=== PATIENT | male | born 1985 | race Caucasian/White ===

== ENCOUNTER 2017-07-14 01:13 | Emergency (ER) | END 2017-07-14 03:45 | disposition home or self-care (01) ==

== ENCOUNTER 2018-07-31 20:58 | Emergency (ER) | payer MEDICAID ==
[~2018-07-31] VITALS: Ht 165.1 cm; Wt 70.0 kg
[~2018-07-31 20:58] MED LIST: ALBU18HF INHALATION; ALBU8.5H5 IH; IBUP-1542 PO; PRED20TA PO
[2018-07-31 21:22] VITALS: Ht 165.1 cm; Wt 70.0 kg
[2018-08-01] MEDS ORDERED: IPRATROPIUM (NEB) 0.5 MG/2.5 ML AMP NEB STA
[2018-08-01] MEDS ORDERED: DEXAMETHASONE 10 MG/ML 1 ML INJ IM ONE
[2018-08-01] MEDS ORDERED: ALBUTEROL 0.083% (NEB) 2.5 MG/3 ML AMP NEB STA ×2 (01:31)
[2018-08-01] MEDS ORDERED: ALBU2.5V3 NEB (02:15)
--- NOTE | 2018-08-01 02:28 | ERD ---
ER Documentation Chief Complaint Chief Complaint ASTHMA EXACERBATTION, SOB, SALINAS HPI 33 year-old [male] coming in today with Chief Complaint: Shortness of breath History of Present Illness: She coming in today with complaint of shortness of breath that has been worsening over 3 days. Patient reports use of at home albuterol inhaler without relief of shortness of breath. Associated symptoms include cough and headache. Review of systems: All systems were reviewed and are negative except for what is indicated in the history of present illness. Past Medical History: Asthma, only use of pro-air Social History: [Patient denies tobacco, alcohol, elicit drug use] Medications: Pro Air Allergies: [NKDA] Social Concerns: Denies ROS All systems reviewed and are negative except as per history of present illness. Medications Home Meds Active Scripts Albuterol Sulfate* (Albuterol Sulfate* Neb) 0.083%-3 Ml Neb, 2.5 MG NEB Q4 PRN for SHORTNESS OF BREATH, #30 EA Prov:ZBIGNIEW DARLING NP 08/01/18 Prednisone* (Prednisone*) 20 Mg Tab, 40 MG PO DAILY for 4 Days, TAB Prov:VIVIANE HOLLOWAY. 07/14/17 Albuterol Sulfate* (Ventolin HFA*) 18 Gm Hfa.aer.ad, 2 PUFF INHALATION Q4H, #1 INHALER Prov:VIVIANE HOLLOWAY 07/14/17 Ibuprofen* (Motrin*) 600 Mg Tab, 600 MG PO Q8 for PAIN AND/OR INFLAMMATION, #30 TAB Prov:DAVID SOTO MD 02/13/16 Albuterol Sulfate* (Albuterol Sulfate* HFA) 8.5 Gm Hfa.aer.ad, 2 PUFF IH Q4H PRN for WHEEZING AND SOB, #1 EA Prov:ANA LAURA GUERRA NP 01/31/15 Allergies Allergies: Coded Allergies: No Known Drug Allergies (Verified Allergy, Mild, 07/07/10) PMhx/Soc Medical and Surgical Hx: pt denies Surgical Hx Anesthesia Reaction: No Hx Neurological Disorder: No Hx Respiratory Disorders: Yes (asthma) Hx Cardiac Disorders: No Hx Psychiatric Problems: No Hx Miscellaneous Medical Probl: No Hx Alcohol Use: No Hx Substance Use: No Hx Tobacco Use: No Smoking Status: Never smoker FmHx Family History: No diabetes, No coronary disease Physical Exam Vitals Vital Signs Date Temp Pulse Resp B/P (MAP) Pulse Ox O2 O2 Flow FiO2 Time Delivery Rate 08/01/18 86 22 92 21 02:05 08/01/18 99 20 139/83 95 Room Air 01:20 (101) 08/01/18 86 20 99 21 00:26 07/31/18 99.1 111 20 148/89 96 21:22 (108) Physical Exam Const: mild distress, tripoding, speaking in clear sentences Head: Atraumatic Eyes: Normal Conjunctiva ENT: Normal External Ears, Nose and Mouth. Neck: Full range of motion. No meningismus. Resp: Clear to auscultation bilaterally; diminished Cardio: Regular rate and rhythm, no murmurs Abd: Soft, non tender, non distended. Normal bowel sounds Skin: No petechiae or rashes Back: No midline or flank tenderness Ext: No cyanosis, or edema Neur: Awake and alert Psych: Normal Mood and Affect Results 24 hrs Current Medications Medications Dose Sig/Christopher Start Time Status Last (Trade) Ordered Route PRN Stop Time Admin Dose Reason Admin Albuterol 2.5 mg ONCE STAT 08/01/18 DC 08/01/18 (Proventil NEB 00:00 00:26 0.083% (Neb)) 08/01/18 00:10 Ipratropium 0.5 mg ONCE STAT 08/01/18 DC 08/01/18 [place] NEB 00:00 00:26 (Atrovent 08/01/18 00:10 0.02% (Neb)) 10 mg ONCE ONCE 08/01/18 DC 08/01/18 Dexamethasone IM 00:00 00:08 (Decadron) 08/01/18 00:10 Albuterol 5 mg ONCE STAT 08/01/18 DC 08/01/18 (Proventil NEB 01:31 02:04 0.083% (Neb)) 08/01/18 01:33 Procedures/MDM Patient with complaint of this of breath ED course includes a thorough examination and history. Chest x-ray done: IMPRESSION:Asthma. Otherwise healthy patient presenting with constellation of symptoms likely representing uncomplicated asthma exacerbation as characterized by history, physical exam findings [radiologic findings/lab]. No respiratory distress, otherwise relatively well appearing and nontoxic after breathing treatments and steroids. Headache no longer present, shortness of breath no longer present. Patient educated on diagnoses, prescriptions, follow- up care, return precautions. Strict return precautions given for worsening condition; questions answered discharge. Disposition for discharge with followup in 2 days with PCP/clinic. Return to ER if signs of respiratory distress return and unable to eat relief of shortness of breath with at home albuterol treatment. Departure Diagnosis: Primary Impression: Asthma exacerbation Asthma severity: mild Asthma persistence: intermittent Qualified Codes: J45.21 - Mild intermittent asthma with (acute) exacerbation Condition: Stable Patient Instructions: Asthma, Acute (Adult) Referrals: COMMUNITY CLINICS YOU HAVE RECEIVED A MEDICAL SCREENING EXAM AND THE RESULTS INDICATE THAT YOU DO NOT HAVE A CONDITION THAT REQUIRES URGENT TREATMENT IN THE EMERGENCY DEPARTMENT. FURTHER EVALUATION AND TREATMENT OF YOUR CONDITION CAN WAIT UNTIL YOU ARE SEEN IN YOUR DOCTORS OFFICE WITHIN THE NEXT 1-2 DAYS. IT IS YOUR RESPONSIBILITY TO MAKE AN APPOINTMENT FOR FOLOW-UP CARE. IF YOU HAVE A PRIMARY DOCTOR --you should call your primary doctor and schedule an appointment IF YOU DO NOT HAVE A PRIMARY DOCTOR YOU CAN CALL OUR PHYSICIAN REFERRAL HOTLINE AT IF YOU CAN NOT AFFORD TO SEE A PHYSICIAN YOU CAN CHOSE FROM THE FOLLOWING [facility] [address] [facility]. [facility] [address] [facility] [facility] [address] [facility] [facility] [address] [facility] [facility] [address] [facility]. [facility]. [address] [facility]. [facility] YOU HAVE RECEIVED A MEDICAL SCREENING EXAM AND THE RESULTS INDICATE THAT YOU DO NOT HAVE A CONDITION THAT REQUIRES URGENT TREATMENT IN THE EMERGENCY DEPARTMENT. FURTHER EVALUATION AND TREATMENT OF YOUR CONDITION CAN WAIT UNTIL YOU ARE SEEN IN YOUR DOCTORS OFFICE WITHIN THE NEXT 1-2 DAYS. IT IS YOUR RESPONSIBILITY TO MAKE AN APPOINTMENT FOR FOLOW-UP CARE. IF YOU HAVE A PRIMARY DOCTOR --you should call your primary doctor and schedule and appointment IF YOU DO NOT HAVE A PRIMARY DOCTOR YOU CAN CALL OUR PHYSICIAN REFERRAL HOTLINE AT . IF YOU CAN NOT AFFORD TO SEE A PHYSICIAN YOU CAN CHOSE FROM THE FOLLOWING [facility] INSTIT[facility]IONS: [facility] [address] [place] [address] [facility] [address] [place] [address] [facility] + [facility] [address] [place] [address] Additional Instructions: Call your primary care doctor TOMORROW for an appointment during the next 2-3 days.See the doctor sooner or return here if your condition worsens before your appointment time. Must follow-up with PCP to get on a pharmacological regimen for asthma. Return to ER if you have respiratory distress and unable to get relief with at home albuterol. ZBIGNIEW DARLING NP Aug 01, 2018 02:28
[2018-08-01] MEDS ORDERED: MONT10TA21 PO (02:29)
[2018-08-01 02:39] VITALS: BP 141/79; PULSE 103; RESP 22
== END 2018-08-01 02:41 | disposition home or self-care (01) ==
LOC: FTE 20:58
DX: J45.21 Mild intermittent asthma with (acute) exacerbation (principal)
CPT/HCPCS: 71045; 87400; 94640; 94664; 96372; J1100; Z7502; Z7610